=== PATIENT | female | born 1985 | race African-American/Black ===

== ENCOUNTER 2019-05-30 13:51 | Emergency (ER) | payer MEDICAID, OTHER ==
[~2019-05-30] VITALS: Ht 165.1 cm; Wt 60.0 kg
[2019-05-30] MEDS ORDERED: ACETAMINOPHEN 500MG TABLET PO ONE (15:00)
[2019-05-30 15:31] LABS: COLOR URINE YELLOW (YELLOW); KETONES URINE 2+ (NEGATIVE); LEUKOCYTE ESTERASE URINE NEGATIVE (NEGATIVE); NITRITE URINE NEGATIVE (NEGATIVE); OCCULT BLOOD URINE NEGATIVE (NEGATIVE); PROTEIN URINE TRACE (NEGATIVE); SPECIFIC GRAVITY URINE 1.014 (1.005-1.030); UROBILINOGEN URINE 0.2 E.U./dL (0.2-1.0)
[2019-05-30 15:39] LABS: CLARITY URINE SLIGHTLY HAZY (CLEAR)
[2019-05-30 16:49] VITALS: BP 122/80
== END 2019-05-30 17:02 | disposition home or self-care (01) ==
LOC: ER 13:51
DX: O99.89 Other specified diseases and conditions complicating pregnancy, childbirth and the puerperium (principal); M54.2 Cervicalgia; R07.81 Pleurodynia; M54.9 Dorsalgia, unspecified; M25.512 Pain in left shoulder; M25.562 Pain in left knee; Y07.01 Husband, perpetrator of maltreatment and neglect; Z3A.00 Weeks of gestation of pregnancy not specified; Y04.2XXA Assault by strike against or bumped into by another person, initial encounter; Y93.89 Activity, other specified; W10.9XXA Fall (on) (from) unspecified stairs and steps, initial encounter; Y92.89 Other specified places as the place of occurrence of the external cause
CPT/HCPCS: 81003; 81025; 99283